=== PATIENT | female | born 1970 | race Caucasian/White ===

== ENCOUNTER 2017-11-24 19:32 | Observation (INO) | payer BC ==
[~2017-11-24] VITALS: Ht 170.2 cm; Wt 107.0 kg
[2017-11-24 19:40] VITALS: BP 149/80
[2017-11-24] MEDS ORDERED: METFORMIN HCL500 MG PO (19:46)
[2017-11-24] MEDS ORDERED: METOPROLOL TART25 MG PO (19:47)
[2017-11-24] MEDS ORDERED: CRESTOR20 MG PO (19:47)
[2017-11-24] MEDS ORDERED: EFFEXOR XR75 MG PO (19:48)
[2017-11-24] MEDS ORDERED: LANTUS100 UNIT/M SUBQ (19:48)
[2017-11-24] MEDS ORDERED: INVOKANA PO (19:48)
[2017-11-24] MEDS ORDERED: TRULICITY SUBQ (19:49)
[2017-11-24 20:02] LABS: ABSOLUTE BASOPHILS 0.1 thou/uL (0.0-0.2); ABSOLUTE EOSINOPHILS 0.2 thou/uL (0.0-0.7); ABSOLUTE LYMPHOCYTES 3.6 thou/uL (0.8-5.3); ABSOLUTE MONOCYTES 0.6 thou/uL (0.0-1.2); ABSOLUTE NEUTROPHILS 5.6 thou/uL (1.6-8.1); BASOPHILS 0.8 %; EOSINOPHILS 1.7 %; HEMATOCRIT 42.6 % (37.0-47.0); HEMOGLOBIN 14.6 gm/dL (12.0-15.0); LYMPHOCYTES 35.7 %; MCH 29.7 pg (26.0-34.0); MCHC 34.3 g/dL (28.0-37.0); MCV 86.5 fL (80.0-100.0); MONOCYTES 6.3 %; MPV 9.2 fl. (7.2-11.1); NUCLEATED RBCS 0 /100WBC; PLATELET COUNT* 234 thou/uL (150-400); POLYS 55.5 %; RBC 4.93 mil/uL (4.20-5.00); RDW-CV 12.5 % (10.5-14.5)
[2017-11-24 20:10] LABS: ANION GAP 7 mmol/L (7-16); BUN 14 mg/dL (7-18); CALCIUM 8.9 mg/dL (8.5-10.1); CHLORIDE 101 mmol/L (98-107); CO2 28 mmol/L (21-32); CREATININE 1.2 mg/dL (0.6-1.3); GLUCOSE 294 mg/dL (70-99); POTASSIUM 3.6 mmol/L (3.5-5.1); SODIUM 136 mmol/L (136-145)
[2017-11-24 20:21] LABS: ALBUMIN 3.6 g/dL (3.4-5.0); ALKALINE PHOSPHATASE 82 U/L (46-116); LIPASE 113 U/L (73-393); MAGNESIUM 2.1 mg/dL (1.8-2.4); NT-PRO BRAIN NAT PEPTIDE 125 pg/mL (<300); SGOT 11 U/L (15-37); SGPT 28 U/L (30-65); TOTAL BILIRUBIN 0.4 mg/dL (<0.1-1.0); TOTAL PROTEIN 7.2 g/dL (6.4-8.2); TROPONIN-I LEVEL <0.06 ng/mL (<0.06)
[2017-11-24 21:18] VITALS: BP 149/89
[2017-11-24 21:30] VITALS: BP 146/76
[2017-11-24] MEDS ORDERED: EFFEXOR 5050 MG/1 T1 PO (21:59)
[2017-11-24] MEDS ORDERED: LASIX 20 MG TAB20 MG PO (22:00)
[2017-11-25 00:39] VITALS: BP 131/67
--- NOTE | 2017-11-25 02:51 | NUR ---
PT ADMIT TO RM 227 AT 2124. ALERT ORIENTED. STEADY GAIT. DENIES BACK AND CHEST PAIN AND DISCOMFORT. TELEMETRY SHOWS SR. TROPONIN AT 2144 <0.06. LAST TROPONIN DUE AT 399. O2 AT 2 LITERS [place]. NPO AT SD FOR CARDIOLOGY CONSULT. WILL CONTINUE TO MONITOR.
[2017-11-25 04:00] VITALS: BP 125/67
--- NOTE | 2017-11-25 08:00 | NUR ---
PT RESTING IN BED, APPEARS ALERTY O X 4, DENIES CHEST PAIN, SOB, PAIN OR DISCOMFORT, NPO, CARDIOLOGT COSULT PENDING
[2017-11-25] MEDS ORDERED: ASPIR 8181 M1 PO (11:50)
[2017-11-25 12:07] VITALS: BP 114/65
[2017-11-25 12:23] VITALS: BP 114/65
[2017-11-25 12:49] VITALS: BP 114/65
[2017-11-25 13:21] VITALS: BP 114/65
--- NOTE | 2017-11-25 14:36 | EKG ---
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 : 1970 Requested By: Isidro Bridges Order Number: [id number] MD: Markie Montiel Measurements Intervals [place] Rate: 78 P: 10 AR: 166 QRS: -23 QRSD: 97 T: 104 QT: 416 QTc: 474 Interpretive Statements Sinus rhythm Borderline left axis deviation Abnormal R-wave progression, late transition Borderline T abnormalities, lateral leads Baseline wander in lead(s) V5,V6 No previous ECG available for comparison Electronically Signed On 11-25-2017 14:36:40 CDT by Markie Montiel [email or web address] <ELECTRONICALLY SIGNED> By: Harshil Montiel MD, [facility] 11/25/17 1436 36 36 Harshil Montiel MD, [facility] /EPI
== END 2017-11-25 13:48 | disposition home or self-care (01) ==
LOC: M.ERS 19:32 → M.2W 20:41 → M.TBA-ER 20:41 → M.ERS 21:19 → M.2W 21:25
PROVIDERS: Emergency Medicine Emergency Medical Services; ADMIT Internal Medicine
DX: R07.89 Other chest pain (principal); I10 Essential (primary) hypertension; E11.9 Type 2 diabetes mellitus without complications; M54.5 Low back pain; I25.2 Old myocardial infarction; R55 Syncope and collapse; E86.0 Dehydration; I20.0 Unstable angina; E78.5 Hyperlipidemia, unspecified; F15.90 Other stimulant use, unspecified, uncomplicated; Z95.1 Presence of aortocoronary bypass graft; Z98.890 Other specified postprocedural states